=== PATIENT | female | born 1990 | race Caucasian/White ===

== ENCOUNTER 2022-03-15 22:08 | Emergency (ER) | payer OTHER ==
[~2022-03-15] VITALS: Ht 162.6 cm; Wt 65.8 kg
--- NOTE | 2022-03-15 22:30 | NUR ---
BIBS FOR BLANCHABLE REDNESS ON BILAT FEET X 1 WEEK. AMBULATORY, PLACED ON BED.
[2022-03-15 22:34] VITALS: BP 135/103
--- NOTE | 2022-03-15 23:15 | NUR ---
DOPP. U/S TECH AT BEDSIDE
== END 2022-03-16 00:04 | disposition home or self-care (01) ==
LOC: ER 22:17
DX: M79.89 Other specified soft tissue disorders (principal); Z60.2 Problems related to living alone
CPT/HCPCS: 93970-TC